=== PATIENT | male | born 1965 | race Caucasian/White ===

== ENCOUNTER → 2022-03-01 | Outpatient (CLI) | payer BC ==
[~2022-03-01] MED LIST: COREG 25MG TAB25 MG PO; KEFLEX500 MG PO
== END ==
LOC: LAB 08:58
PROVIDERS: Internal Medicine
DX: Z48.22 Encounter for aftercare following kidney transplant (principal); Z79.899 Other long term (current) drug therapy
CPT/HCPCS: 36415; 80069; 87086